=== PATIENT | female | born 1965 | race Caucasian/White ===

== ENCOUNTER 2019-05-28 15:49 | Observation (INO) | payer OTHER ==
--- NOTE | 2019-05-28 16:06 | ED ---
Neurological HPI - HPI Summary HPI Summary: Time seen by provider: 1554. The patient is a 53 y/o F presenting to [facility] accompanied by mother and brother with a chief complaint of sudden onset memory loss starting at 1515 and is still occurring. Per family, they had been [place] the [place] when the patient was suddenly unable to remember what she had done earlier in the day. It is reported that the patient had woken up around 0600 this morning and had been doing yard work earlier in the day, but she doesn't recall these events. She additionally is unable to remember that she had stabbing pain in the left eye, but that is resolved now in the ED. Her brother notes that the amnesia is worsening because she forgets that she had been water skiing about an hour ago. She denies any other neurological deficits including slurred speech or weakness. She did not get injured while water skiing. No known PMHx. No neurological FHx. Nonsmoker, occasional EtOH, no substance use. Code Gomez called at 1558. Dr. Jeffrey, neurology, in ED at 1600. Patient to CT at 1602. - History of Current Complaint Chief Complaint: EDNeurologicalDeficit Stated Complaint: STABBING EYE PAIN MEMORY LOSS PER BRO Hx Obtained From: Patient, Family/Geoint Analyst - brother and mother Hx From Patient Unobtainable Due To: Other - patient able to give some hx but she does not remember all Onset/Duration: Sudden Onset, Started minutes ago - at 1515, Still Present Timing: Sudden Onset Onset Severity: Mild Current Severity: Moderate - with worsening Pain Intensity: 0 Pain Scale Used: 0-10 Numeric Character: Other: - amnesia Aggravating: Unknown Alleviating: Unknown Associated Signs and Symptoms: Negative: Weakness, Impaired Speech TPA Considered: No - symptoms are resolving - Allergy/Home Medications Allergies/Adverse Reactions: Allergies Allergy/AdvReac Type Severity Reaction Status Date / Time No Known Allergies Allergy Verified 05/28/19 15:52 Home Medications: Home Medications Multivitamins/Minerals TAB* [Theragran/minerals TAB*] 1 tab PO DAILY 05/28/19 [ History Confirmed 05/28/19] PMH/Surg Hx/FS Hx/Imm Hx Endocrine/Hematology History: Denies: Hx Anticoagulant Therapy, Hx Diabetes Cardiovascular History: Denies: Hx Hypertension - Surgical History Surgical History: None Surgery Procedure, Year, and Place: none Infectious Disease History: No Infectious Disease History: Denies: Traveled Outside the [place] in Last 30 Days - Family History Known Family History: Negative: Hypertension, Diabetes - Social History Alcohol Use: Occasionally Hx Substance Use: No Substance Use Type: Reports: None Hx Tobacco Use: No Smoking Status (MU): Never Smoked Tobacco Review of Systems Positive: Other - left eye pain (resolved) Neurological: Other - amnesia Negative: Weakness, Slurred Speech All Other Systems Reviewed And Are Negative: Yes Physical Exam - Summary Physical Exam Summary: Appearance: Well appearing, no pain distress Skin: warm, dry, reflects adequate perfusion Head/face: normal Eyes: EOMI, JOSE MANUEL ENT: normal Neck: supple, non-tender Respiratory: CTA, breath sounds present Cardiovascular: RRR, pulses symmetrical Abdomen: non-tender, soft Musculoskeletal: normal, strength/ROM intact Neuro: normal, sensory motor intact, A&Ox2, GCS: 15 Triage Information Reviewed: Yes Vital Signs On Initial Exam: Initial Vitals Temp Pulse Resp BP Pulse Ox 99.0 F 100 18 143/90 99 05/28/19 15:50 05/28/19 15:50 05/28/19 15:50 05/28/19 15:50 05/28/19 15:50 Vital Signs Reviewed: Yes - [place] Coma Scale Best Eye Response: 4 - Spontaneous Best Motor Response: 6 - Obeys Commands Best Verbal Response: 5 - Oriented Coma Scale Total: 15 Diagnostics - Vital Signs Vital Signs Temp Pulse Resp BP Pulse Ox 05/28/19 15:50 99.0 F 100 18 143/90 99 - Laboratory Result Diagrams: 05/28/19 16:18 05/28/19 16:18 Lab Statement: Any lab studies that have been ordered have been reviewed, and results considered in the medical decision making process. - CT Brain CT CT Interpretation Completed By: Radiologist Summary of CT Findings: Impression: No evidence of intracranial mass or hemorrhage is noted. ED physician has reviewed this report. Head CTA CT Interpretation Completed By: Radiologist Summary of CT Findings: Impression: 1. No acute occlusive disease, significant stenosis or aneurysm the brain. 2. No acute disease or significant stenosis in the neck. ED physician has reviewed this report. - EKG 1619 Cardiac Rate: NL - 85 BPM EKG Rhythm: Sinus Rhythm Summary of EKG Findings: NSR at 85 bpm. No acute changes. NIH Scale - NIH Scale Level of Consciousness: Alert/Keenly Responsive Ask Patient the Month and His/Her Age: Both Correct Ask Pt to Open/Close Eyes and Software Test Engineer/Release Non-Paretic Hand: Both Correctly Best Gaze (Only Horizontal Eye Movement): Normal Visual Field Testing: No Visual Loss Facial Paresis-Pt to Smile & Close Eyes or Grimace Symmetry: Normal/Symmetrical Motor Function - Right Arm: No Drift-Holds 10 Seconds Motor Function - Left Arm: No Drift-Holds 10 Seconds Motor Function - Right Leg: No Drift-Holds 10 Seconds Motor Function - Left Leg: No Drift-Holds 10 Seconds Limb Ataxia-Must be out of Proportion to Weakness Present: Absent Sensory (Use Pinprick to Test Arms/Legs/Trunk/Face): Normal Best Language (Describe Picture, Name Items): No Aphasia Dysarthria (Read Several Words): Normal Extinction and Inattention: No Abnormality Total Score: 0 Re-Evaluation - Re-Evaluation First Eval Re-Evaluation Time: 16:45 Comment: I discussed admission with the patient and family; they agree with this plan. Course/Dx - Course Course Of Treatment: Time seen by provider: 1554. The patient is a 53 y/o F presenting to [facility] accompanied by mother and brother with a chief complaint of sudden onset amnesia of all events occurring today including when she woke up starting at 1515 and is still occurring with worsening, per family. Additionally reports stabbing left pain in left eye. Denies any other neurological deficits including slurred speech or weakness. No known PMHx. Code Dyer called at 1558. Dr. Jeffrey, neurology, in ED at 1600. Patient to CT at 1602. Upon physical exam, the patient appears to be A&Ox2. GCS is 15. I spoke with Dr. Jeffrey at 1620, and he reports that the patients NIH is 0. He believes that the symptomology is consistent with global amnesia. Brain CT impression reveals no evidence of intracranial mass or hemorrhage. Head CTA impression: 1. No acute occlusive disease, significant stenosis or aneurysm the brain. 2. No acute disease or significant stenosis in the neck. EKG at 1619 reveals NSR at 85 bpm. Patient is not TPA considered since symptoms are resolving in the ED. Blood work reveals abs lymphs of 0.7. In the ED course, the patient was administered Ns. At 1640, Dr. Jeffrey recommends admission with Brain MRI and Head MRA, which will followed up through admission. I spoke with Dr. Dong, hospitalist, and he accepts the patient for admission at 1645. Patient is diagnosed with TGA. She and family agree with the plan for admission. 30 minutes CCT. - Differential Dx Differential Diagnoses Neuro: Positive: Cerebrovascular Accident, Intracranial Bleed, Metabolic Abnormality, Transient Ischemic Attack - Diagnoses Provider Diagnoses: TGA (transient global amnesia) During the Visit The Following Alert/Code Occurred: Code Dyer - called at 1558 - Physician Notifications Discussed Care Of Patient With: Phil Jeffrey - neurology Time Discussed With Above Provider: 16:20 Instructed by Provider To: Other - I spoke with Dr. Jeffrey, and he reports NIH of 0; he suspects global amnesia at this time. Dr. Jeffrey recommends admission with Brain MRI and Head MRA with contrast at 1640. At 1645, I spoke with Dr. Dong, hospitalist, and he accepts the patient for admission. - Critical Care Time Critical Care Time: 30-74 min - 30 minutes CCT Discharge - Sign-Out/Discharge Documenting (check all that apply): Patient Departure - Patient is accepted for admission by Dr. Dong. Patient Received Moderate/Deep Sedation with Procedure: No - Discharge Plan Condition: Stable Disposition: ADMITTED TO [facility] Referrals: [facility] [Outside] - Billing Disposition and Condition Condition: STABLE Disposition: Admitted to [facility] - Attestation Statements Document Initiated by Malcolme: Yes Documenting Scribe: Hillary Iniguez Provider For Whom Pura is Documenting (Include Credential): Dr. Abhay Beck MD Scribe Attestation: Hillary Govea scribed for Dr. Abhay Beck MD on 05/28/19 at 1908. Scribe Documentation Reviewed: Yes Provider Attestation: The documentation as recorded by the Hillary pérez accurately reflects the service I personally performed and the decisions made by me, Dr. Abhay Beck MD Status of Scribe Document: Viewed
[2019-05-28 16:31] LABS: ABS Lymphocytes 0.7 10^3/ul (1.0-4.8); ABS Monocytes 0.3 10^3/ul (0-0.8); ABS Neutrophils 2.5 10^3/ul (1.5-7.7); Eosinophil % 1.1 %; Hematocrit 40 % (35-47); Hemoglobin 13.6 g/dL (12.0-16.0); Lymphocyte % 20.9 %; Mean Corpuscular HGB Conc 34 g/dL (31-36); Mean Corpuscular Hemoglobin 30 pg (27-31); Mean Corpuscular Volume 88 fL (80-97); Mean Platelet Volume 9.1 fL (7.4-10.4); Platelet Count 164 10^3/uL (150-450); Red Blood Count 4.56 10^6 /uL (3.70-4.87); Red Cell Distribution Width 13 % (10-15); White Blood Count 3.6 10^3/uL (3.5-10.8)
[2019-05-28 16:39] LABS: INR 0.96 (0.82-1.09)
[2019-05-28] MEDS ORDERED: NS 0.9% 1000 ML** 1,000 ML IV.FLUID IV ONE (16:39)
[2019-05-28 16:40] LABS: Activated Partial Thrombo Time 29.1 seconds (26.0-38.0)
[2019-05-28 16:52] LABS: Albumin 4.8 g/dL (3.2-5.2); Albumin/Globulin Ratio 1.8 (1-3); BUN/Creatinine Ratio 23.7 (8-20); EGFR Non-African American 79.3 (>60); Globulin 2.7 g/dL (2-4); HDL Cholesterol 65.1 mg/dL; Potassium 3.6 mmol/L (3.5-5.0); Total Bilirubin 0.3 mg/dL (0.2-1.0); Total Protein 7.5 g/dL (6.4-8.9)
[2019-05-28] MEDS ORDERED: Iohexol 350* (CONTRAST) 500 ML MDV IV ONE (16:57)
--- NOTE | 2019-05-28 17:21 | ADMNOTE ---
Subjective Date of Service: 05/28/19 Interval History: ADMISSION HISTORY AND PHYSICAL EXAM: Allergies Allergy/AdvReac Type Severity Reaction Status Date / Time No Known Allergies Allergy Verified 05/28/19 15:52 Home Medications Medication Instructions Recorded Confirmed Type Multivitamins/Minerals TAB* 1 tab PO DAILY 05/28/19 05/28/19 History [Theragran/minerals TAB*] HPI: The patient was in her usual state of health until the afternoon of the day of admission. She went water-skiing with her mother and her brother. She drove the boat and water-skied during that time. The last time she came out of the water and entered the boat she seemed very confused. There was no head trauma. She denies headache. Her speech was intact and she walked normally and moved all her limbs well. She does not recall anything of today's events when I asked her about them in the ED. Family History: Findings - unremarkable. Social History: Findings - Lives with her . No alcohol abuse, no tobacco use. and son are her SDM's Past Medical History: Findings - x 3, Lasik eye surgery, migraines, cholecystectomy Review of Systems - Measurements Intake and Output: Intake and Output Last 24 Hours 05/26/19 05/27/19 05/28/19 05/29/19 06:59 06:59 06:59 06:59 Weight 160 lb Objective Vital Signs - 8 hr 05/28/19 15:50 Temperature 99.0 F Pulse Rate 100 Respiratory 18 Rate Blood Pressure 143/90 (mmHg) O2 Sat by Pulse 99 Oximetry Oxygen Devices in Use Now: None Appearance: Alert, supine on ED stretcher. Neutral affect, looks comfortable. Eyes: No Scleral Icterus Ears/Nose/Mouth/Throat: NL Teeth, Lips, Gums, Clear Oropharnyx, Mucous Membranes Moist Neck: NL Appearance and Movements; NL JVP, No Thyroid Enlargement, Masses Respiratory: Symmetrical Chest Expansion and Respiratory Effort, Clear to Auscultation, Clear to Percussion - d Cardiovascular: NL Sounds; No Murmurs; No JVD, RRR, No Edema, - Abdominal: NL Sounds; No Tenderness; No Distention, No Hepatosplenomegaly, - Extremities: No Edema, No Clubbing, Cyanosis, - Skin: No Rash or Ulcers, No Nodules or Sclerosis, - Neurological: NL Sensation - Unable to state present month or year. Speech clear and fluent. Hand eradicator equal. Moves both legs well. No tremor, - - Speech clear and fluent. SINGLETON well. Hand eradicator equal and strong. She is unable to state the present month or year. She repeated questions several times despite having the same question answered every time. Result Diagrams: 05/28/19 16:18 05/28/19 16:18 Assess/Plan/Problems-Billing Assessment: - Patient Problems (1) Transient global amnesia Current Visit: Yes Status: Acute Code(s): G45.4 - TRANSIENT GLOBAL AMNESIA SNOMED Code(s): 699247610 Comment: Observation on tele overnight. Management and prognosis discussed with mother and brother.
[2019-05-28 17:25] LABS: TSH (Thyroid Stimulating Horm) 1.85 mcIU/mL (0.34-5.60)
--- NOTE | 2019-05-28 17:35 | CONS ---
NEUROLOGY CONSULTATION NOTE: DATE OF CONSULT: 05/28/19 CONSULTING PROVIDER: Dr. Abhay Beck. REASON FOR CONSULT: Amnesia. CHIEF COMPLAINT: "I can't remember anything." HISTORY OF PRESENT ILLNESS: Mrs. Vidhya Tolbert is a 53-year-old female, who is fairly healthy, who presented with sudden onset amnesia. The patient was complaining of a left eye sharp pain at 9:30 a.m. She called her dispensing optician apprentice to be assessed. Her dispensing optician apprentice was unavailable, so she called her brother to obtain phone numbers for dispensing optician apprentice nearby. She is from [place]. She drove to visit her brother and mother and go on a boat trip this afternoon. The patient went water skiing for about 8 to 10 minutes at 2: 30 p.m. She then swam back to the boat, got on the boat and started driving the boat while her brother went for a water skiing ride for another 10 minutes. Then suddenly the patient's mother yelled out for her son as the patient was acting confused. The patient did not recall ever going water skiing. She does not recall how she got on the boat. She also does not remember calling her dispensing optician apprentice this morning or cleaning her gutters. She denied any visual disturbance. She does have history of headaches and has mild aching pain on the left frontal region. The pain does not radiate. She has no photo or phonophobia. She has no nausea. She denied any impairment in her speech or language functions. She is extremely anxious and concerned due to her memory lapse. She is unaware how she got to the hospital and why she is here. NIH stroke scale is 0. PAST MEDICAL HISTORY: Migraine headache. MEDICATIONS: Multivitamins. ALLERGIES: No known drug allergies. FAMILY HISTORY: Her grandmother and aunt suffered a stroke. SOCIAL HISTORY: The patient is . She denied tobacco use. She consumes alcohol occasionally. REVIEW OF SYSTEMS: A 14-point review of systems was obtained and otherwise negative, except for what was mentioned in the HPI. PHYSICAL EXAMINATION: Vitals: Temperature of 99, pulse of 100, respiratory rate of 18, oxygen saturation of 99%, blood pressure is 143/90. General: Well - developed, well-nourished, healthy-appearing female, in no acute distress. Head: Atraumatic, normocephalic. Eyes: Conjunctivae/corneas are clear. Neck: Supple and symmetric. No nuchal rigidity. No lymphadenopathy. No carotid bruits. Cardiac: Regular rate and rhythm, with normal S1 and S2. No murmurs or gallops. Respiratory: Clear to auscultation bilaterally, with no wheezing or rhonchi. Extremities: Normal range of motion, with no cyanosis, hammertoes or high arches. Psych: Broad affect with normal mood. Easy to establish rapport. Neurological Examination: Awake, alert, and oriented to person, place , time, but not general circumstances. The patient has global amnesia of most recent event that took place recently. 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 Cranial Nerves: Pupils are equal, round, and reactive to light. Extraocular muscles are intact. Sensation is intact to light touch on the face. No facial asymmetry. Tongue is symmetric and midline, with no atrophy or fasciculation. Motor: 5/5 strength in the upper and lower extremities. No focal weakness or paresthesias. Sensation is intact to light touch and pinprick throughout. Reflexes are 3+ in the upper and lower extremities symmetrically, bilaterally. Downgoing plantar responses. Cerebellar: Normal [id number] and heel-to- loya testing bilaterally. Gait: Normal stance and gait when standing at the edge of the bed. DIAGNOSTIC STUDIES/LAB DATA: Labs, imaging, and other diagnostic testing: She has no available labs at this current time. CT head without contrast was personally reviewed. There is no evidence of acute intracranial abnormalities. There is no hemorrhage seen. 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 The patient was participating in strenuous activities right before the symptoms. She does have history of headaches. Both of these findings are risk factors for transient global amnesia. 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 NIH stroke scale is 0. She is not a candidate for IV tPA or mechanical thrombectomy as stroke is not suspected in this case. However, there are very rare cases where transient ischemic attacks or small strokes in the temporal or thalamic regions can be the presenting signs and symptoms of amnesia. She has no history of seizures or risk factors for seizures. Overall, I suspect the patient has transient global amnesia of unexplained etiology at this point. We will rule out any secondary causes such as vascular malformation or a tumor lesion, less likely given her sudden onset in symptoms, with imaging studies. I have ordered an MRI of brain with and without contrast as well as an MRA of the head. I reassured the patient, her brother, and mother at bedside that this presentation typically can last for 6- 8 hours. Her risk of recurrence is approximately 4% during her lifespan. Please admit under observation for further evaluation. Please perform neuro checks every 4 hours. If she develops any new neurological symptoms, please order a stat CT head and reactivate the stroke alerts. DVT prophylaxis with SCDs. I will continue to follow. [id number]/[facility] #: [id number] [place]ERSON
[2019-05-28] MEDS ORDERED: Gadoteridol* (CONTRAST) 279.3 MG/ML 10 ML IV ONE (20:57)
[2019-05-29] MEDS: Acetaminophen TAB* 325 MG PO PRN ×2 (00:04→08:39)
[2019-05-29] MEDS ORDERED: Calcium Carbonate CHEW TAB* 500 MG (TUMS) PO PRN (00:17)
[2019-05-29 04:20] VITALS: BP 104/63
--- NOTE | 2019-05-29 10:42 | DS ---
DISCHARGE SUMMARY: DATE OF ADMISSION: 05/28/19 DATE OF DISCHARGE: 05/29/19 HOSPITAL COURSE: This 64-year-old woman who was admitted with a complaint of cannot remember anythin g. She had been waterskiing that afternoon with her brother and her mother. The history is detailed in my admission note. When she came in from the water, she was acting confused. She was brought to the emergency room. She really could not remember waterskiing. She could not state the year or the month. She kept repeating questions that had just been answered. She was in consultation by Dr. Jeffrey. She had a CT scan of the brain, MRI of the brain, MRA of the c ircle of [place]. All the tests were unremarkable. Following morning, she had essentially recovered. She could remembe r coming to the hospital room the night before. She remembered her breakfast. She seemed to have in tact memory at this time, although she still had complete amnesia from the period of time she had bee n waterskiing. FINAL DIAGNOSES: 1. Transient global amnesia. 2. Migraines. DISCHARGE MEDICATIONS: 1. Multivitamin with mineral daily. 2. The patient has some medication at home that she uses p.r.n. for migraines but has not used one r ecently. DISPOSITION ON DISCHARGE: Discharged home. CONDITION ON DISCHARGE: Improved. [id number]/[facility] #: [id number]
--- NOTE | 2019-05-29 11:09 | PN ---
Subjective Date of Service: 05/29/19 Length of Stay: 1 Days Neurology is following for TGA. Interval History: She has regained her memory. She does not remember from around 2 pm-5pm. She remembers going to the ER. She kind of remembers me from yesterday. She recalls everything that took place the morning of 05/28, when she did not recall that yesterday. She denied any headaches. She has migraine headaches 1-2 times a month. She did not get an EEG, and does not need one urgently. MRI brain with and without contrast, and CTA head were completed on 05/28/2019 and reviewed. No acute infarction or temporal asymmetry. Review of Systems: Denied CP, SOB, or palpitations. Family History: Findings - unremarkable. Social History: Findings - Lives with her . No alcohol abuse, no tobacco use. and son are her SDM's Past Medical History: Findings - x 3, Lasik eye surgery, migraines, cholecystectomy Objective Active Medications: Acetaminophen (Tylenol Tab*) 650 mg PO Q4H PRN PRN Reason: FEVER/PAIN Last Admin: 05/29/19 08:39 Dose: 650 mg Calcium Carbonate (Tums*) 500 mg PO Q4H PRN PRN Reason: GERD Last Admin: 05/29/19 00:48 Dose: 500 mg Vital Signs 05/28/19 05/28/19 05/28/19 15:50 16:09 16:10 Temperature 99.0 F Pulse Rate 100 Respiratory 18 18 17 Rate Blood Pressure 143/90 137/85 (mmHg) O2 Sat by Pulse 99 Oximetry 05/28/19 05/28/19 05/28/19 16:22 16:52 17:00 Temperature Pulse Rate Respiratory 13 23 14 Rate Blood Pressure 128/85 121/79 (mmHg) O2 Sat by Pulse Oximetry 05/28/19 05/28/19 05/28/19 18:17 18:18 18:20 Temperature 97.9 F Pulse Rate 86 90 85 Respiratory 16 Rate Blood Pressure 130/82 130/82 (mmHg) O2 Sat by Pulse 97 98 98 Oximetry 05/28/19 05/28/19 05/28/19 18:26 19:15 23:15 Temperature 98.7 F 98.4 F Pulse Rate 85 86 83 Respiratory 16 18 Rate Blood Pressure 115/68 109/58 (mmHg) O2 Sat by Pulse 98 98 Oximetry 05/29/19 05/29/19 05/29/19 03:15 07:52 08:00 Temperature 97.7 F 98.3 F Pulse Rate 71 75 Respiratory 20 16 16 Rate Blood Pressure 104/63 104/63 (mmHg) O2 Sat by Pulse 98 98 Oximetry Intake and Output Last 24 Hours 05/27/19 05/28/19 05/29/19 05/30/19 06:59 06:59 06:59 06:59 Intake Total 1000 Balance 1000 Weight 160 lb Intake: IV Fluids 1000 Oral 0 Oxygen Devices in Use Now: None Neurology Exam: General: Well nourished, well developed, and in no acute distress HEENT: Normocephelic/atraumatic, sclera anicteric, mucous membranes moist Neck: Supple Chest: Clear to auscultation bilaterally Cardiovascular: Regular rate and rhythm without murmurs, rubs, gallops Abdomen: Soft, non-tender/non-distended Extremities: No clubbing, cyanosis, or edema Neurological Findings: Awake, alert, and oriented to person, place, and time. Speech: fluent without dysarthria, repetition intact Cranial Nerve: PERRL, EOM intact, VFF, no nystagmus, face symmetric bilaterally , facial sensation intact, hearing intact to finger rub bilaterally, palate elevates symmetrically, tongue midline, SCM and Trapezius s/s. Motor: s/s throughout, proximal and distal extremities x4 tone/bulk normal Sensation: intact to LT/PP bilaterally upper and lower extremities Deep Tendon Reflex: 2+ symmetric in the upper/lower extremities, Babinski - down going Finger to nose, rapid alternating movements intact without tremor, no dysdiadochokinesia Gait: intact with good arm swing and stride Result Diagrams: 05/28/19 16:18 05/28/19 16:18 Assessment/Plan 1. Transient Global amnesia: resolved. She needs an EEG which can be done as an outpatient. The EEG is to look for any temporal epileptiform discharges. She lives in [place] and will discuss with her PCP for an EEG referral. She denied any headaches. 2. Migraine headache: recommend magnesium oxide 400 mg PO daily for headache prevention. She can discuss with her PCP regarding triptan therapy. I will sign off. Patient lives out of town and will follow-up with her PCP in [place].
== END 2019-05-29 11:17 | disposition home or self-care (01) ==
LOC: ED 15:49 → MEDTELE 17:08
PROVIDERS: ADMIT Internal Medicine; ATTEND Internal Medicine
DX: G45.4 Transient global amnesia (principal); G43.909 Migraine, unspecified, not intractable, without status migrainosus; Z79.899 Other long term (current) drug therapy
CPT/HCPCS: 36415; 70450; 70496; 70498; 70544; 70553; 80053; 80061; 82607; 83605; 84443; 84484; 85025; 85610; 85730; 93005; 96360; 99284; A9270-GY; A9579; G0378; Q9967